=== PATIENT | male | born 1955 | race African-American/Black ===

== ENCOUNTER 2021-07-26 07:59 | Outpatient (CLI) | payer OTHER | END 2021-07-26 08:00 | disposition home or self-care (01) | LOC: TBSIIMAG 07:59 | PROVIDERS: ATTEND Urology | DX: C61 Malignant neoplasm of prostate (principal) | CPT/HCPCS: 72197 ==

== ENCOUNTER 2021-11-12 09:54 | Outpatient (CLI) | payer OTHER | END 2021-11-12 09:55 | disposition home or self-care (01) | LOC: LABBT 09:54 | PROVIDERS: ATTEND Urology | DX: Z01.818 Encounter for other preprocedural examination (principal); C61 Malignant neoplasm of prostate; N40.1 Benign prostatic hyperplasia with lower urinary tract symptoms; R39.12 Poor urinary stream | CPT/HCPCS: 71046; 80053; 81001; 85027; 85610; 85730; 86850; 86900; 86901; 87086; 87811; 93005; 93010 ==

== ENCOUNTER 2022-01-07 13:17 | Outpatient (CLI) | payer OTHER ==
[2022-01-07 14:03] LABS: Bilirubin Neg (Negative); Blood, Urine Negative (Negative); Clarity Clear (Clear); Glucose, Urine (Dipstick) Normal (Negative); Ketone, Urine 5 mg/dL (Negative); Leukocyte Negative (Negative); Nitrite Negative (Negative); Protein, Urine (Dipstick) Negative (Neg-Trace); Urobilinogen Normal mg/dL (Less than 2)
[2022-01-07 14:06] LABS: Hemoglobin 14.9 g/dL (13.5-17.5); Mean Corpuscular HGB CONC 32.9 g/dL (32.0-36.0); Mean Corpuscular Hemoglobin 26.9 pg (27.0-33.0); Mean Corpuscular Volume 81.9 fl (81.2-95.1); Mean Platelet Volume 10.7 fl (7.4-10.4); Platelet Count 155 10x3/uL (150-450); RBC Distribution Width 13.8 % (11.5-14.5); Red Blood Cell (RBC) Count 5.53 10x6/uL (4.32-5.72); White Blood Cell (WBC) Count 7.5 10x3/uL (3.5-10.5)
[2022-01-07 14:14] LABS: PTT 29.9 sec (22.0-33.0); Prothrombin Time 10.7 sec (9.5-12.1)
[2022-01-07 14:19] LABS: ALT (SGPT) 23 U/L (8-55); AST (SGOT) 24 U/L (5-34); Albumin 4.2 g/dL (3.4-4.8); Alkaline Phosphatase 64 U/L (40-110); Anion Gap 14 mmol/L (10-20); BUN (Urea Nitrogen) 21 mg/dL (8.4-25.7); Bilirubin, Total 0.4 mg/dL (0.2-1.2); Calc. Creatinine Clearance 0 mL/min (70-130); Carbon Dioxide 25 mmol/L (23-31); Chloride 105 mmol/L (98-107); Estimated GFR 56; Globulin 3.1 g/dL (2.4-3.5); Glucose 77 mg/dL (80-115); Potassium 3.8 mmol/L (3.5-5.1); Protein, Total 7.3 g/dL (5.8-8.1); Sodium 140 mmol/L (136-145)
[2022-01-07 14:30] LABS: Mucous/LPF 1+ LPF (<2+); RBC/HPF 0-3 HPF (0-3); Squamous Epithelial 0-3 HPF (0-3); WBC/HPF 0-3 HPF (0-3)
== END 2022-01-07 13:18 | disposition home or self-care (01) ==
LOC: LABBT 13:17
PROVIDERS: ATTEND Urology
DX: Z01.818 Encounter for other preprocedural examination (principal); C61 Malignant neoplasm of prostate; N40.1 Benign prostatic hyperplasia with lower urinary tract symptoms; R39.12 Poor urinary stream
CPT/HCPCS: 71046; 80053; 81001; 85027; 85610; 85730; 86850; 86900; 86901; 87086

== ENCOUNTER 2022-01-07 13:30 | Inpatient (IN) | payer OTHER ==
[2022-01-08 12:32] VITALS: BMI 25.1
[2022-01-10] MEDS ORDERED: ceFOXitin 1 GM VIAL ONE (06:21)
[2022-01-10] MEDS ORDERED: Sodium Chloride 0.9% 100 ML ONE (06:21)
[2022-01-10] MEDS ORDERED: Gentamicin Sulfate 80 MG in Premix Bag 1 BAG IVPB SCH (06:30)
[2022-01-10] MEDS ORDERED: Ketorolac Tromethamine 30 MG/ML VIAL ONE (06:42)
[2022-01-10] MEDS ORDERED: Lidocaine 1% MPF 2 ML VIAL ONE (06:42)
[2022-01-10] MEDS ORDERED: fentaNYL Citrate/PF 100 MCG/2 ML SYRINGE ONE (06:57)
[2022-01-10] MEDS ORDERED: Lidocaine 1% (PF) 30 ML VIAL ONE (07:02)
[2022-01-10] MEDS ORDERED: EPINEPHrine 1 MG/ML AMP ONE (07:02)
[2022-01-10] MEDS ORDERED: Bupivacaine PF 0.5% 30 ML VIAL ONE (07:30)
[2022-01-10 07:42] LABS: SARS-CoV-2 NAA Rapid Test Not Detected (NotDetected)
[2022-01-10] MEDS ORDERED: Ondansetron PF 4 MG/2 ML Vial ONE (07:53)
[2022-01-10] MEDS ORDERED: Dexamethasone 20 MG/5 ML VIAL ONE (07:53)
[2022-01-10] MEDS ORDERED: Glycopyrrolate 0.2 MG/ML 5 ML SYRINGE ONE (07:53)
[2022-01-10] MEDS ORDERED: Vecuronium 10 MG VIAL ONE (07:53)
[2022-01-10] MEDS ORDERED: ePHEDrine 50 MG/ML VIAL ONE (07:53)
[2022-01-10] MEDS ORDERED: PROPOFOL 200 MG/20 ML VIAL ONE (07:53)
[2022-01-10] MEDS ORDERED: NEOSTIGMINE 3 MG/3 ML SYR 3 MG/3 ML SYRINGE ONE (07:53)
[2022-01-10] MEDS ORDERED: Phenylephrine 10 MG/ML VIAL ONE (08:43)
[2022-01-10] MEDS ORDERED: B & O 30 MG SUPP ONE (12:22)
[2022-01-10] MEDS ORDERED: Sodium Chloride 0.9% 1,000 ML IV SCH (12:56)
[2022-01-10] MEDS ORDERED: Fentanyl 100 MCG/2 ML VIAL SLOW IVP PRN (12:56)
[2022-01-10] MEDS ORDERED: diphenhydrAMINE 25 MG CAP PO PRN (12:56)
[2022-01-10] MEDS ORDERED: Hyoscyamine Sulfate SL 0.125 mg Tablet SL PRN (12:56)
[2022-01-10] MEDS ORDERED: Ondansetron PF 4 MG/2 ML Vial IVP PRN (12:56)
[2022-01-10] MEDS ORDERED: hydrALAZINE 20 MG/ML VIAL SLOW IVP PRN (12:56)
[2022-01-10] MEDS ORDERED: Oxybutynin 5 MG TAB PO PRN (12:56)
[2022-01-10] MEDS ORDERED: Mag-Al 1200 mg/1200 mg/30 ML UDCUP PO PRN (12:56)
[2022-01-10] MEDS ORDERED: oxyCODONE 5 MG TAB PO PRN (12:56)
[2022-01-10] MEDS ORDERED: FENTANYL 50 MCG/ML VIAL 50 MCG/ML VIAL ONE (13:32)
[2022-01-10 14:53] LABS: Hemoglobin 14.4 g/dL (14.0-18.0); Mean Corpuscular HGB CONC 30.9 g/dL (32.0-36.0); Mean Corpuscular Hemoglobin 26.9 pg (27.0-31.0); Mean Corpuscular Volume 87.2 fl (78.0-98.0); Mean Platelet Volume 8.7 fL (7.4-10.4); Platelet Count 135 thou/uL (130-400); RBC Distribution Width 12.4 % (11.5-14.5); Red Blood Cell (RBC) Count 5.34 mill/uL (4.70-6.10); White Blood Cell (WBC) Count 12.4 thou/uL (4.8-10.8)
[2022-01-10 15:23] LABS: Anion Gap 12 mmol/L (10-20); BUN (Urea Nitrogen) 15 mg/dL (8.4-25.7); Calc. Creatinine Clearance 55 mL/min (70-130); Calcium 8.6 mg/dL (7.8-10.44); Carbon Dioxide 25 mmol/L (23-31); Chloride 105 mmol/L (98-107); Estimated GFR 54; Glucose 176 mg/dL (80-115); Potassium 4.2 mmol/L (3.5-5.1); Sodium 138 mmol/L (136-145)
[2022-01-10] MEDS: Acetaminophen 500 MG TAB PO SCH ×2 (15:53→23:48)
[2022-01-10] MEDS: cefOXitin 1.5 GM in Sodium Chloride 0.9% 100 ML IVPB SCH ×2 (15:53→22:30)
[2022-01-10] MEDS: traMADol HCl 50 MG TAB PO SCH ×2 (15:54→23:48)
[2022-01-10] MEDS: oxyCODONE 5 MG TAB PO PRN (20:30)
[2022-01-10] MEDS: Docusate 100 MG CAP PO SCH (20:31)
[2022-01-10] MEDS ORDERED: Zolpidem Tartrate 5 MG TAB PO SCH ×2 (21:00)
[2022-01-10] MEDS ORDERED: Atorvastatin Calcium 10 MG TAB PO SCH (21:00)
[2022-01-11] MEDS: oxyCODONE 5 MG TAB PO PRN (03:53)
[2022-01-11 05:54] LABS: #Lymphocytes 1.2 thou/uL (1.20-3.40); #Monocytes 0.9 thou/uL (0.11-0.59); #Neutrophils 10.2 thou/uL (1.40-6.50); %Eosinophils 0.2 % (0.0-10.0); %Lymphocytes 9.6 % (21.0-51.0); %Monocytes 7.1 % (0.0-10.0); %Neutrophils 83.1 % (42.0-75.0); Hemoglobin 13.7 g/dL (14.0-18.0); Mean Corpuscular HGB CONC 31.4 g/dL (32.0-36.0); Mean Corpuscular Hemoglobin 27.2 pg (27.0-31.0); Mean Corpuscular Volume 86.9 fl (78.0-98.0); Mean Platelet Volume 9.1 fL (7.4-10.4); Platelet Count 140 thou/uL (130-400); RBC Distribution Width 12.5 % (11.5-14.5); Red Blood Cell (RBC) Count 5.04 mill/uL (4.70-6.10); White Blood Cell (WBC) Count 12.2 thou/uL (4.8-10.8)
[2022-01-11] MEDS: Acetaminophen 500 MG TAB PO SCH ×2 (06:10→12:34)
[2022-01-11] MEDS: cefOXitin 1.5 GM in Sodium Chloride 0.9% 100 ML IVPB SCH (06:10)
[2022-01-11] MEDS: traMADol HCl 50 MG TAB PO SCH ×2 (06:10→12:35)
[2022-01-11 06:19] LABS: Anion Gap 11 mmol/L (10-20); BUN (Urea Nitrogen) 16 mg/dL (8.4-25.7); Calc. Creatinine Clearance 51 mL/min (70-130); Calcium 8.4 mg/dL (7.8-10.44); Carbon Dioxide 24 mmol/L (23-31); Chloride 103 mmol/L (98-107); Estimated GFR 50; Glucose 135 mg/dL (80-115); Potassium 4.3 mmol/L (3.5-5.1); Sodium 134 mmol/L (136-145)
[2022-01-11] MEDS: Docusate 100 MG CAP PO SCH (08:58)
[2022-01-11 15:44] VITALS: BP 128/78; TEMP 97.2
== END 2022-01-11 17:00 | disposition home or self-care (01) | DRG 708 ==
LOC: SURG A 01-10 05:44 → SURG B 01-10 14:12
PROVIDERS: ADMIT Urology; ATTEND Urology
PROC: 0VT04ZZ Resection of Prostate, Percutaneous Endoscopic Approach (ICD-10-PCS; principal; 2022-01-10)
PROC: 07TC4ZZ Resection of Pelvis Lymphatic, Percutaneous Endoscopic Approach (ICD-10-PCS; 2022-01-10)
PROC: 0VT34ZZ Resection of Bilateral Seminal Vesicles, Percutaneous Endoscopic Approach (ICD-10-PCS; 2022-01-10)
PROC: 8E0W4CZ Robotic Assisted Procedure of Trunk Region, Percutaneous Endoscopic Approach (ICD-10-PCS; 2022-01-10)
DX: C61 Malignant neoplasm of prostate (principal); Z20.822 Contact with and (suspected) exposure to COVID-19; E11.9 Type 2 diabetes mellitus without complications; E78.5 Hyperlipidemia, unspecified; Z79.899 Other long term (current) drug therapy
CPT/HCPCS: 36415; 71046; 80048; 80053; 81001; 82570; 85025; 85027; 85610; 85730; 86850; 86900; 86901; 87086; 88307; 88309; 88341; 88342; C1713; C1776; J0171; J0694; J1100; J1885; J2001; J2370; J2405; J2704; J3010; J3490; J7050; S0020; U0002

== ENCOUNTER 2022-01-12 11:07 | Emergency (ER) | payer OTHER ==
[2022-01-12] MEDS ORDERED: Morphine 4 MG/ML VIAL ONE (13:08)
== END 2022-01-12 14:27 | disposition home or self-care (01) ==
LOC: ERS 11:07
DX: T83.83XA Hemorrhage due to genitourinary prosthetic devices, implants and grafts, initial encounter (principal)
CPT/HCPCS: 96372; 99283; J2270